=== PATIENT | male | born 1955 | race Caucasian/White ===

== ENCOUNTER → 2016-03-22 | Outpatient (CLI) | payer BC ==
[~2016-03-22] MED LIST: ADVIN50/60 INH; ADVIN50050 INH; ALBU1AER9 PO; DOXY-300 PO; IMT100 PO; INSDGI SQ; LSN/10125 PO; METF500T PO; MONT1TAB3 PO
[2016-03-22 14:26] LABS: ESTIMATED AVERAGE GLUCOSE 194 mg/dl; HA1C FLAG Normal (Normal)
[2016-03-22 15:20] LABS: RATIO 140.9 mcg/mg (0-30.0)
[2016-03-22 16:01] LABS: ALT/SGPT 37 U/L (12-78); AST/SGOT 16 U/L (15-37); BLOOD UREA NITROGEN 14 mg/dl (7-18); BUN/CREATININE RATIO 16.3 (10-20); CALCIUM 8.7 mg/dl (8.5-10.1); CARBON DIOXIDE 26 mmol/L (21-32); CHLORIDE 106 mmol/L (98-107); CREATININE 0.87 mg/dl (0.60-1.40); GLUCOSE 185 mg/dl (70-99); POTASSIUM 3.8 mmol/L (3.5-5.1); SODIUM 142 mmol/L (136-145)
[2016-03-22 16:02] LABS: ALB/GLOB RATIO 1.1 (0.9-2); ALKALINE PHOSPHATASE 48 U/L (45-117)
--- NOTE | 2016-03-28 05:58 | CODING QUERY MEDICAL NECESSITY ---
SUPPORTING DIAGNOSIS NEEDED A supporting diagnosis is required for the test/procedure performed on this patient in order for us to be reimbursed by the patient's insurance. Please provide a supporting diagnosis for the following test/procedure listed below next to the test name along with your signature. *If there is no additional diagnosis for this patient that would support the following test/procedure please document that below next to the test/procedure. DATE OF SERVICE: 03/22/16 Test(s)/Procedure(s) that require a supporting diagnosis: * PSA DIAGNOSIS: Provider Signature: Date: Thank you Mary Hahn [employer] Once completed, please kindly fax back to [phone] For questions please call [phone]
== END | disposition home or self-care (01) ==
LOC: C.LABBC 09:29
PROVIDERS: ATTEND Urology
DX: I10 Essential (primary) hypertension (principal); E11.9 Type 2 diabetes mellitus without complications; N49.2 Inflammatory disorders of scrotum; Z12.5 Encounter for screening for malignant neoplasm of prostate